=== PATIENT | female | born 1975 | race Caucasian/White ===

== ENCOUNTER 2017-12-21 11:43 | Emergency (ER) | payer BC, MEDICAID ==
[~2017-12-21] VITALS: Ht 152.4 cm; Wt 83.5 kg
[2017-12-21 11:53] VITALS: BP 125/79
[2017-12-21] MEDS ORDERED: ERYT1OIN6 EACHEYE (12:30)
[2017-12-21] MEDS ORDERED: NAPH30DR OP (12:30)
== END 2017-12-21 12:46 | disposition home or self-care (01) ==
LOC: ER 11:44
DX: H10.9 Unspecified conjunctivitis (principal); Z79.2 Long term (current) use of antibiotics
CPT/HCPCS: 99283

== ENCOUNTER 2018-05-07 04:44 | Emergency (ER) | payer BC, MEDICAID ==
[~2018-05-07] VITALS: Ht 152.4 cm; Wt 78.0 kg
[~2018-05-07 04:44] MED LIST: NAPH30DR OP
[2018-05-07 04:51] VITALS: BP 116/92
[2018-05-07] MEDS ORDERED: clindamycin 150mg capsule PO ONE (05:00)
[2018-05-07] MEDS ORDERED: ibuprofen 200mg tablet PO ONE (05:00)
[2018-05-07] MEDS ORDERED: LIDOcaine 1% w/epiNEPHrine 1:200,000 30ml vial IM ONE (05:00)
[2018-05-07] MEDS ORDERED: CLIN-96 PO (05:18)
== END 2018-05-07 05:29 | disposition home or self-care (01) ==
LOC: ER 04:44
DX: L02.412 Cutaneous abscess of left axilla (principal); F17.200 Nicotine dependence, unspecified, uncomplicated; Z79.899 Other long term (current) drug therapy
CPT/HCPCS: 10060; 99283; J3490

== ENCOUNTER 2019-07-10 15:40 | Emergency (ER) | payer BC ==
[~2019-07-10] VITALS: Ht 152.4 cm; Wt 81.8 kg
[~2019-07-10 15:40] MED LIST changes: +CLIN-97 PO
[2019-07-10 15:47] VITALS: BP 140/71
[2019-07-10 16:00] LABS: BASOPHILS % (AUTO) 0.4 % (0-1); EOSINOPHILS # (AUTO) 0.1 X10'3 (0-0.9); EOSINOPHILS % (AUTO) 0.9 % (0-6); HEMATOCRIT 43.2 % (35.0-45.0); HEMOGLOBIN 14.8 g/dl (12.0-16.0); LYMPHOCYTES # (AUTO) 2.2 X10'3 (1.1-4.8); MEAN CORPUSCULAR HEMOGLOBIN 33.6 PG (27.0-31.0); MEAN CORPUSCULAR HGB CONC 34.2 g/dL (33.0-36.5); MEAN CORPUSCULAR VOLUME 98.2 FL (78-98); MONOCYTES # (AUTO) 0.3 X10'3 (0-0.9); MONOCYTES % (AUTO) 3.3 % (2-12); NEUTROPHILS # (AUTO) 6.6 X10'3 (1.8-7.7); NEUTROPHILS % (AUTO) 71.4 % (42-75); PLATELET COUNT 269 X10'3 (140-440); WHITE BLOOD COUNT 9.3 X10'3 (4.5-11.0)
[2019-07-10 16:10] LABS: ALANINE AMINOTRANSFERASE 39 U/L (12-78); ALBUMIN 3.6 G/DL (3.4-5.0); ALBUMIN/GLOBULIN RATIO 1.1 (1.1-1.5); ALKALINE PHOSPHATASE 44 IU/L (46-116); ANION GAP 10 (8-16); ASPARTATE AMINO TRANSFERASE 20 U/L (10-37); BILIRUBIN,TOTAL 0.6 MG/DL (0.1-1.0); BLOOD UREA NITROGEN 11 MG/DL (7-18); BUN/CREATININE RATIO 14.5 (6.6-38.0); CALCIUM 8.5 MG/DL (8.5-10.1); CHLORIDE 107 MMOL/L (99-107); CREATININE 0.76 MG/DL (0.40-0.90); GLUCOSE 109 MG/DL (70-104); POTASSIUM 3.7 MMOL/L (3.5-5.1); SODIUM 140 MMOL/L (135-145); TOTAL CARBON DIOXIDE 23.1 MMOL/L (24-32); TOTAL PROTEIN 6.8 G/DL (6.4-8.2); eGFR 83 ML/MIN
== END 2019-07-10 16:30 | disposition home or self-care (01) ==
LOC: ER 15:41
DX: R07.89 Other chest pain (principal); Z90.49 Acquired absence of other specified parts of digestive tract; Z87.891 Personal history of nicotine dependence
CPT/HCPCS: 36415; 71045; 80053; 84484; 85025; 93005; 99285